=== PATIENT | male | born 1955 | race Caucasian/White ===

== ENCOUNTER 2020-05-20 14:23 | Inpatient (IN) | payer MEDICAID ==
[~2020-05-20] VITALS: Ht 182.9 cm; Wt 75.9 kg
[2020-05-20] MEDS ORDERED: magnesium Cl slow-release 64mg tablet PO PRN (15:40)
[2020-05-20] MEDS ORDERED: HYDROcodone/acetaminophen 5mg/325mg tablet PO PRN (15:40)
[2020-05-20] MEDS ORDERED: acetaminophen 325mg tablet PO PRN ×2 (15:40)
[2020-05-20] MEDS ORDERED: ondansetron/PF 4mg/2ml inj IV PRN (15:40)
[2020-05-20] MEDS ORDERED: acetaminophen 650mg rectal suppository RC PRN (15:40)
[2020-05-20] MEDS ORDERED: aminophylline 250mg/10ml inj. IV PRN (15:40)
[2020-05-20] MEDS ORDERED: metoprolol tartrate 1mg/ml inj IV PRN (15:40)
[2020-05-20] MEDS ORDERED: potassium Cl 20 mEq SR tablet PO PRN ×2 (15:40)
[2020-05-20] MEDS ORDERED: metoclopramide 5 mg/ml inj IV PRN (15:40)
[2020-05-20] MEDS ORDERED: magnesium hydroxide 30ml (MOM) UD suspension PO PRN (15:40)
[2020-05-20] MEDS ORDERED: mag hydrox/Alum hydrox/simeth 30ml oral suspension PO PRN (15:40)
[2020-05-20] MEDS ORDERED: nitroGLYCERIN 0.4mg SUBLingual tab SL PRN (15:40)
[2020-05-20] MEDS ORDERED: regadenoson 0.4mg/5ml syringe IV ONE (15:40)
[2020-05-20] MEDS ORDERED: magnesium 2GM in 50ml NS 50 ML IV PRN (15:40)
[2020-05-20] MEDS ORDERED: potassium CL 10mEq/100ml bag 100 ML IV PRN ×2 (15:40)
[2020-05-20] MEDS ORDERED: morphine 2 MG/ML inj. syringe IV PRN ×2 (15:40)
[2020-05-20] MEDS ORDERED: HYDROcodone/acetaminophen 10/325mg tab PO PRN (15:40)
[2020-05-20] MEDS ORDERED: bisacodyl 10mg suppository rectal RC PRN (15:40)
[2020-05-20] MEDS ORDERED: magnesium 4gm in 100ml NS 100 ML IV PRN (15:40)
[2020-05-20] MEDS ORDERED: BENA20TA76 PO (15:46)
[2020-05-20] MEDS ORDERED: WARF3TAB56 PO (15:46)
[2020-05-20] MEDS ORDERED: HYDR25TA4 PO (15:46)
[2020-05-20] MEDS ORDERED: CARV12.5 PO (15:46)
[2020-05-20] MEDS ORDERED: POTA-82 PO (15:46)
[2020-05-20 16:06] LABS: BASOPHILS % (AUTO) 0.8 % (0-1); EOSINOPHILS # (AUTO) 0.2 X10'3 (0-0.9); EOSINOPHILS % (AUTO) 2.5 % (0-6); HEMOGLOBIN 10.2 g/dl (14.0-17.9); LYMPHOCYTES # (AUTO) 0.9 X10'3 (1.1-4.8); LYMPHOCYTES % (AUTO) 15.3 % (21-51); MEAN CORPUSCULAR HEMOGLOBIN 30.5 PG (27.0-31.0); MEAN CORPUSCULAR HGB CONC 32.9 g/dL (33.0-36.5); MEAN CORPUSCULAR VOLUME 92.7 FL (78-98); MEAN PLATELET VOLUME 9.7 FL (7.4-10.4); MONOCYTES # (AUTO) 0.6 X10'3 (0-0.9); NEUTROPHILS # (AUTO) 4.4 X10'3 (1.8-7.7); NEUTROPHILS % (AUTO) 71.4 % (42-75); PLATELET COUNT 264 X10'3 (140-440); RED BLOOD COUNT 3.34 X10'6 (4.70-6.10); RED CELL DISTRIBUTION WIDTH 15.4 % (11.5-14.5); WHITE BLOOD COUNT 6.1 X10'3 (4.5-11.0)
[2020-05-20 16:12] LABS: ALANINE AMINOTRANSFERASE 25 U/L (12-78); ALBUMIN 3.2 G/DL (3.4-5.0); ALBUMIN/GLOBULIN RATIO 0.8 (1.1-1.5); ALKALINE PHOSPHATASE 65 IU/L (46-116); ANION GAP 6 (8-16); ASPARTATE AMINO TRANSFERASE 19 U/L (10-37); BILIRUBIN,TOTAL 0.7 MG/DL (0.1-1.0); BLOOD UREA NITROGEN 20 MG/DL (7-18); BUN/CREATININE RATIO 11.8 (5.4-32.0); CHLORIDE 106 MMOL/L (99-107); GLUCOSE 89 MG/DL (70-104); POTASSIUM 4.4 MMOL/L (3.5-5.1); SODIUM 141 MMOL/L (135-145); TOTAL CARBON DIOXIDE 28.8 MMOL/L (24-32); eGFR 41 ML/MIN
[2020-05-20 16:16] LABS: PARTIAL THROMBOPLASTIN TIME 41 SECONDS (22-32)
[2020-05-20 16:20] LABS: MAGNESIUM 1.8 MG/DL (1.5-2.4); PHOSPHORUS 3.6 MG/DL (2.3-4.5)
[2020-05-20] MEDS ORDERED: warfarin 3mg tablet PO SCH (16:30)
[2020-05-20 17:17] LABS: HEMOGLOBIN A1C 5.7 % (4.5-6.2)
--- NOTE | 2020-05-20 17:35 | NUR ---
echocardio gram at bedside
[2020-05-20] MEDS: normal saline 1000ml 1,000 ML IV SCH ×2 (18:15→18:31)
[2020-05-20] MEDS: HYDROchlorothiazide 25mg tablet PO SCH (18:15)
--- NOTE | 2020-05-20 19:26 | NUR ---
PT GIVEN FOOD UPON REQUEST
[2020-05-20] MEDS: K and/or MAG REPLACEMENT MC SCH (20:00)
--- NOTE | 2020-05-20 20:02 | NUR ---
BREAKING PRIMARY RN. PT NOT IN ANY SIGNS OF DISTRESS OR DISCOMFORT. WILL CONTINUE TO MONITOR.
[2020-05-20 20:11] LABS: URINE AMPHETAMINE SCREEN NEGATIVE (Neg); URINE BARBITUATE SCREEN NEGATIVE (Neg); URINE BENZODIAZEPINES SCREEN NEGATIVE (Neg); URINE CANNABINOID SCREEN POSITIVE (Neg); URINE COCAINE SCREEN NEGATIVE (Neg); URINE METHADONE SCREEN NEGATIVE (Neg); URINE OPIATE SCREEN NEGATIVE (Neg); URINE PHENCYCLIDINE SCREEN NEGATIVE (Neg)
[2020-05-20 20:12] LABS: CLARITY,URINE CLEAR (Clear); COLOR,URINE YELLOW (Yellow); GLUCOSE, URINE NEGATIVE (Neg); KETONES,URINE TRACE mg/dl (Neg); LEUKOCYTE ESTERASE ,URINE NEGATIVE (Neg); NITRITES, URINE NEGATIVE (Neg); OCCULT BLOOD,URINE NEGATIVE (Neg); PROTEIN,URINE NEGATIVE (Neg)
[2020-05-20 20:13] LABS: UA COLLECTION TYPE URINAL
[2020-05-20] MEDS: carVEDilol 12.5mg tablet PO SCH (20:43)
[2020-05-20] MEDS: potassium Cl 20 mEq SR tablet PO SCH (20:43)
[2020-05-20] MEDS ORDERED: temazepam 15mg capsule PO PRN (21:00)
[2020-05-20] MEDS: warfarin 3mg tablet PO SCH (21:32)
[2020-05-20 23:50] VITALS: BP 122/77
[2020-05-21] VITALS (13 sets, daily range): BP systolic 125–158; BP diastolic 62–85
[2020-05-21 05:10] LABS: BASOPHILS % (AUTO) 0.3 % (0-1); EOSINOPHILS # (AUTO) 0.2 X10'3 (0-0.9); EOSINOPHILS % (AUTO) 3.2 % (0-6); HEMATOCRIT 31.2 % (42.0-52.0); HEMOGLOBIN 10.3 g/dl (14.0-17.9); LYMPHOCYTES # (AUTO) 0.7 X10'3 (1.1-4.8); MEAN CORPUSCULAR HEMOGLOBIN 30.4 PG (27.0-31.0); MEAN PLATELET VOLUME 9.4 FL (7.4-10.4); MONOCYTES # (AUTO) 0.7 X10'3 (0-0.9); MONOCYTES % (AUTO) 11.3 % (2-12); NEUTROPHILS # (AUTO) 4.5 X10'3 (1.8-7.7); NEUTROPHILS % (AUTO) 73.2 % (42-75); PLATELET COUNT 265 X10'3 (140-440); RED BLOOD COUNT 3.39 X10'6 (4.70-6.10); RED CELL DISTRIBUTION WIDTH 15.6 % (11.5-14.5); WHITE BLOOD COUNT 6.2 X10'3 (4.5-11.0)
[2020-05-21 05:11] LABS: PARTIAL THROMBOPLASTIN TIME 38 SECONDS (22-32)
[2020-05-21 05:19] LABS: ALBUMIN 3.2 G/DL (3.4-5.0); ANION GAP 6 (8-16); BLOOD UREA NITROGEN 21 MG/DL (7-18); BUN/CREATININE RATIO 13.3 (5.4-32.0); CALCIUM 8.4 MG/DL (8.5-10.1); CHLORIDE 108 MMOL/L (99-107); CHOL/HDL RATIO 4.1 (0.00-4.99); CHOLESTEROL 106 MG/DL (0-200); CREATININE 1.58 MG/DL (0.60-1.10); GLUCOSE 85 MG/DL (70-104); HDL CHOLESTEROL 26 MG/DL (35-60); LDL CHOLESTEROL 67 MG/DL (50-100); MAGNESIUM 1.8 MG/DL (1.5-2.4); POTASSIUM 4.2 MMOL/L (3.5-5.1); SODIUM 142 MMOL/L (135-145); TOTAL CARBON DIOXIDE 28.2 MMOL/L (24-32); TRIGLYCERIDES 68 MG/DL (20-135); eGFR 44 ML/MIN
--- NOTE | 2020-05-21 06:16 | NUR ---
Problems reprioritized. Patient report given, questions answered & plan of care reviewed with Theresa TUBBS.
--- NOTE | 2020-05-21 06:27 | NUR ---
Patient in room PCU 3027. I have received report from Lcua TUBBS and had the opportunity to ask questions and assume patient care.
[2020-05-21] MEDS ORDERED: lisinopril 20mg tablet PO SCH (08:00)
[2020-05-21] MEDS ORDERED: regadenoson 0.4mg/5ml syringe IV ONE (08:00)
[2020-05-21] MEDS: K and/or MAG REPLACEMENT MC SCH ×2 (08:00→19:53)
--- NOTE | 2020-05-21 08:10 | NUR ---
Called [facility] scan to verify time of test. Patient has been injected hold all BP medications til after test. Spoke with Reese in stress test. Will continue to monitor.
[2020-05-21] MEDS: aspirin 81mg tablet.DR PO SCH (08:22)
[2020-05-21] MEDS: HYDROchlorothiazide 25mg tablet PO SCH (08:22)
[2020-05-21] MEDS: potassium Cl 20 mEq SR tablet PO SCH ×2 (08:22→20:49)
[2020-05-21] MEDS: atorvastatin 20mg tablet PO SCH (08:22)
--- NOTE | 2020-05-21 09:20 | NUR ---
Mai from stress test called and request a redrawn of trops due to the increase at 0.19. If drewal is trending down, test will continue. Will continue to monitor.
--- NOTE | 2020-05-21 11:37 | NUR ---
Patient back from stress test. Patient in bed resting VSS. Will continue to monitor. Addendum: 05/21/20 at 1234 by Theresa Duarte RN Patients vital signs BP:129/75 HR:67, O2:95%RA, 0/10 Pain. Patient is in bed relaxing, talking on the phone with family members. Patient is anxious about being able to eat.
[2020-05-21] MEDS: carVEDilol 12.5mg tablet PO SCH ×2 (12:12→20:50)
--- NOTE | 2020-05-21 13:33 | NUR ---
Paged Dr. Moss Re: Arnoldo Medina RM [id number]. FYI Stress test result are in. Pt is inquiring about being able to eat. Please advise, Thank you Theresa TUBBS [id number] Addendum: 05/21/20 at 1356 by Theresa Duarte RN Dr. Moss responded. New orders to continue on Heart Healthy Diet. Stress test was negative. Will continue to monitor.
--- NOTE | 2020-05-21 14:09 | NUR ---
Malnutrition Consult: Pt admit w/ NSTEMI NPO for this AM for Lexiscan and stress test pending heart healthy diet PO lunch today. Pt has normal strength, no edema/wounds, BMI 23 via standing scale, and well-developed/well-nourished per MD note. At this time pt does not meet minimum malnutrition criteria. Will continue to monitor. Addendum: 05/21/20 at [address] Amended: Links added.
--- NOTE | 2020-05-21 15:11 | NUR ---
Paged Dr. Moss Re: Arnoldo Medina RM [id number]. FYI pt allergic to Iodine for CT Abd. May we have an order to pre medicate and use barium instead? Please advise Thank you Theresa TUBBS [phone]
--- NOTE | 2020-05-21 16:02 | NUR ---
Dr. Moss at bedside with patient and nurse. Patient appears to be nervous and asking to be tested for multiple illness. New orders CT scan of abdomen as well as TSH levels. Patient is allergic to iodine, for CT department, [place], asked to convert to barium study and to premedicate patient. MD aware and is OK to proceed with new direction. Pre Pre-medication for Iodine Allergy: Prednison 50mg ordered for 05-21 2100 then 05-22 0100 and 0700. Benadryl 50mg 05-22 at 0700. Readi cat oral susp. 1 bottle of 450mg at 2100 on 05-21 and then 225 mg at 0700 on 05-22 and last dose of 225 right before procedure. All orders are added. We will continue to monitor. is aware and acknowledges.
[2020-05-21] MEDS: amLODIPine 5mg tablet PO SCH (16:14)
--- NOTE | 2020-05-21 18:05 | NUR ---
Problems reprioritized. Patient report given, questions answered & plan of care reviewed with ADRIANO chaudhary.
--- NOTE | 2020-05-21 18:10 | NUR ---
Patient in room PCU 3027. I have received report from Theresa TUBBS and had the opportunity to ask questions and assume patient care.
[2020-05-21] MEDS: ALPRAZolam 0.25mg tablet PO SCH (20:49)
[2020-05-21] MEDS: warfarin 3mg tablet PO SCH (20:50)
[2020-05-21] MEDS ORDERED: prednisone 10mg tablet PO ONE (21:00)
[2020-05-21] MEDS ORDERED: barium sulfate 450ml oral suspension PO ONE (21:00)
[2020-05-22] MEDS ORDERED: prednisone 10mg tablet PO ONE ×2 (01:00→07:00)
[2020-05-22 02:15] VITALS: BP 131/75
[2020-05-22 05:13] LABS: BASOPHILS % (AUTO) 0.1 % (0-1); EOSINOPHILS % (AUTO) 0.1 % (0-6); HEMATOCRIT 34.8 % (42.0-52.0); HEMOGLOBIN 11.4 g/dl (14.0-17.9); LYMPHOCYTES # (AUTO) 0.3 X10'3 (1.1-4.8); LYMPHOCYTES % (AUTO) 3.8 % (21-51); MEAN CORPUSCULAR HEMOGLOBIN 29.8 PG (27.0-31.0); MEAN CORPUSCULAR HGB CONC 32.6 g/dL (33.0-36.5); MEAN CORPUSCULAR VOLUME 91.4 FL (78-98); MONOCYTES # (AUTO) 0.1 X10'3 (0-0.9); MONOCYTES % (AUTO) 1.2 % (2-12); NEUTROPHILS % (AUTO) 94.8 % (42-75); PLATELET COUNT 325 X10'3 (140-440); RED BLOOD COUNT 3.81 X10'6 (4.70-6.10); RED CELL DISTRIBUTION WIDTH 15.4 % (11.5-14.5); WHITE BLOOD COUNT 7.3 X10'3 (4.5-11.0)
[2020-05-22 05:24] LABS: PARTIAL THROMBOPLASTIN TIME 35 SECONDS (22-32)
[2020-05-22 06:01] LABS: ALBUMIN 3.2 G/DL (3.4-5.0); ANION GAP 8 (8-16); BLOOD UREA NITROGEN 25 MG/DL (7-18); CALCIUM 8.8 MG/DL (8.5-10.1); CHLORIDE 105 MMOL/L (99-107); CREATININE 1.56 MG/DL (0.60-1.10); GLUCOSE 153 MG/DL (70-104); MAGNESIUM 1.7 MG/DL (1.5-2.4); POTASSIUM 4.3 MMOL/L (3.5-5.1); SODIUM 138 MMOL/L (135-145); TOTAL CARBON DIOXIDE 24.6 MMOL/L (24-32); eGFR 45 ML/MIN
--- NOTE | 2020-05-22 06:05 | NUR ---
Problems reprioritized. Patient report given, questions answered & plan of care reviewed with Theresa TUBBS.
--- NOTE | 2020-05-22 06:26 | NUR ---
Patient in room PCU 3027. I have received report from Luca TUBBS and had the opportunity to ask questions and assume patient care.
[2020-05-22 07:00] VITALS: BP 136/66
[2020-05-22] MEDS ORDERED: barium sulfate 450ml oral suspension PO ONE ×2 (07:00→08:30)
[2020-05-22] MEDS ORDERED: diphenhydrAMINE 25mg capsule PO ONE (07:00)
[2020-05-22] MEDS: aspirin 81mg tablet.DR PO SCH (07:22)
[2020-05-22] MEDS: HYDROchlorothiazide 25mg tablet PO SCH (07:23)
[2020-05-22] MEDS: potassium Cl 20 mEq SR tablet PO SCH (07:23)
[2020-05-22] MEDS: amLODIPine 5mg tablet PO SCH (07:23)
[2020-05-22] MEDS: ALPRAZolam 0.25mg tablet PO SCH (07:24)
[2020-05-22] MEDS: atorvastatin 20mg tablet PO SCH (07:25)
[2020-05-22] MEDS: carVEDilol 12.5mg tablet PO SCH (07:25)
[2020-05-22] MEDS: K and/or MAG REPLACEMENT MC SCH (08:00)
[2020-05-22] MEDS ORDERED: lisinopril 20mg tablet PO SCH (08:00)
[2020-05-22] MEDS ORDERED: ESCITALOPRAM OXALATE 5 MG TABLET PO SCH (08:00)
--- NOTE | 2020-05-22 09:14 | NUR ---
Spoke with tech in CT patient is to have CT at 1000. Please make sure next dose of redi cat is at 950, pt in wheelchair ready to go.
[2020-05-22] MEDS ORDERED: iohexol 300mg/ml 100ml inj. ONE (10:07)
--- NOTE | 2020-05-22 10:19 | NUR ---
Patient went down for CT scan via wheelchair [facility]
--- NOTE | 2020-05-22 10:38 | NUR ---
Patient back from CT. Patient in bed resting. Awaiting results. Will continue to monitor.
[2020-05-22 11:00] VITALS: BP 118/60
--- NOTE | 2020-05-22 11:45 | NUR ---
Dr. Oconnell at bedside with patient and Nurse. New orders to discharge pending the CT scan being negative. Page Dr when results are in.
[2020-05-22 15:00] VITALS: BP 128/66
--- NOTE | 2020-05-22 15:01 | NUR ---
Paged Dr. Oconnell Re: Arnoldo Medina RM [id number]. Needing clarification for care for pt. Dr. Rdz said to feed him and discharge. Please advise. Thank you Theresa TUBBS [phone]
[2020-05-22] MEDS ORDERED: NOR5T PO (16:47)
--- NOTE | 2020-05-22 17:52 | NUR ---
Patient is ok to discharger per MD orders, however patient does not have transportation to [place]. [facility] has been notified. Will continue to other measures.
--- NOTE | 2020-05-22 18:04 | NUR ---
Problems reprioritized. Patient report given, questions answered & plan of care reviewed with Luca TUBBS.
--- NOTE | 2020-05-22 18:24 | NUR ---
Patient in room PCU 3027. I have received report from Theresa TUBBS and had the opportunity to ask questions and assume patient care.
--- NOTE | 2020-05-22 20:10 | NUR ---
DC paperwork reviewed with pt, all questions answered pt given ride home with friend, pt stable at time of DC.
== END 2020-05-22 20:05 | disposition home or self-care (01) | DRG 190 ==
LOC: ER 14:24 → OBSVTOIN 15:37 → ED HOLD 15:37 → PCU 3S 23:45
PROVIDERS: ADMIT Family Medicine; ATTEND Family Medicine
PROC: 4A02XM4 Measurement of Cardiac Total Activity, External Approach (ICD-10-PCS; principal; 2020-05-21)
PROC: 3E073KZ Introduction of Other Diagnostic Substance into Coronary Artery, Percutaneous Approach (ICD-10-PCS; 2020-05-21)
DX: I25.118 Atherosclerotic heart disease of native coronary artery with other forms of angina pectoris (principal); D64.9 Anemia, unspecified; E78.5 Hyperlipidemia, unspecified; E87.6 Hypokalemia; I10 Essential (primary) hypertension; I35.1 Nonrheumatic aortic (valve) insufficiency; I21.A1 Myocardial infarction type 2; Z95.0 Presence of cardiac pacemaker; Z79.01 Long term (current) use of anticoagulants; Z91.041 Radiographic dye allergy status; Z80.9 Family history of malignant neoplasm, unspecified; Z95.1 Presence of aortocoronary bypass graft; Z95.2 Presence of prosthetic heart valve
CPT/HCPCS: 36415; 71045; 71260; 74177; 78452; 80048; 80053; 80061; 80305; 81003; 83036; 83735; 83880; 84100; 84443; 84484; 85025; 85610; 85730; 87081; 93005; 93017; 93306; 99285; A9500; G0378; J2785; J7030; J7512; Q0163; Q9967